=== PATIENT | male | born 1995 | race Caucasian/White ===

== ENCOUNTER 2024-06-18 15:12 | Emergency (ER) | payer OTHER ==
[~2024-06-18] VITALS: Ht 182.9 cm; Wt 93.0 kg
[2024-06-18] MEDS ORDERED: ONDANSETRON 4 MG/2 ML VIAL ONE (16:08)
[2024-06-18] MEDS ORDERED: FAMOTIDINE. 20 MG/2 ML VIAL IV ONE (16:09)
[2024-06-18] MEDS: FAMOTIDINE. 20 MG/2 ML VIAL IV ONE (16:12)
[2024-06-18] MEDS: IV NORMAL SALINE 1000 ML BAG IV ONE (16:12)
[2024-06-18] MEDS: ONDANSETRON 4 MG/2 ML VIAL IV ONE (16:12)
[2024-06-18 16:17] LABS: BASOPHILS # (AUTO) 0.1 K/UL (0.0-0.2); EOSINOPHILS # (AUTO) 0.1 K/uL (0.0-0.7); EOSINOPHILS % (AUTO) 0.9 % (0.0-7.0); HEMATOCRIT 50.3 % (36.7-47.1); HEMOGLOBIN 17.6 g/dL (12.5-16.3); LYMPHOCYTES # (AUTO) 2.2 K/uL (0.8-4.8); MEAN CORPUSCULAR HEMOGLOBIN 34.1 uug (23.8-33.4); MEAN CORPUSCULAR HGB CONC 35 g/dL (32.5-36.3); MEAN CORPUSCULAR VOLUME 97.4 fL (73.0-96.2); MONOCYTES # (AUTO) 0.6 K/uL (0.1-1.30); MONOCYTES % (AUTO) 8.1 % (0.0-11.0); NEUTROPHILS # (AUTO) 3.9 K/uL (1.8-8.9); PLATELET COUNT (AUTO) 298 K/uL (152-348); RED BLOOD CELL COUNT(AUTO) 5.17 MIL/uL (4.06-5.63); WHITE BLOOD COUNT (AUTO) 6.8 K/uL (3.6-10.2)
[2024-06-18 16:18] LABS: DIFFERENTIAL COMMENT 1
[2024-06-18 16:32] LABS: ALBUMIN 3.7 g/dL (3.4-5.0); BILIRUBIN,DIRECT 0.2 mg/dL (0.0-0.2); BILIRUBIN,TOTAL 0.6 mg/dL (0.2-1.0); CALCIUM 8.2 mg/dL (8.5-10.1); POTASSIUM 3.7 mmol/L (3.5-5.1); TOTAL PROTEIN, SERUM 7.5 g/dL (6.4-8.2)
[2024-06-18] MEDS ORDERED: ONDA4TAB11 PO (17:22)
[2024-06-18] MEDS ORDERED: FAMO-132 PO (17:22)
[2024-06-18 18:22] VITALS: BP 121/77; O2SAT 96
== END 2024-06-18 17:40 | disposition home or self-care (01) ==
LOC: ER 15:12
DX: F10.10 Alcohol abuse, uncomplicated (principal); R10.9 Unspecified abdominal pain; R11.2 Nausea with vomiting, unspecified; Y90.9 Presence of alcohol in blood, level not specified
CPT/HCPCS: 99284; 96374; 96361; 96375; 80076; 80048; 83690; 85025; 36415; J3490; J2405; J7040; A4606; A4663

== ENCOUNTER 2025-01-20 13:10 | Emergency (ER) | payer OTHER ==
[~2025-01-20] VITALS: Ht 182.9 cm; Wt 95.3 kg
[~2025-01-20 13:10] MED LIST: FAMO-132 PO; ONDA4TAB11 PO
[2025-01-20 13:14] VITALS: BP 140/89
[2025-01-20 13:53] VITALS: BP 140/89; TEMP 98; O2SAT 97
== END 2025-01-20 13:54 | disposition home or self-care (01) ==
LOC: ER 13:17
DX: S61.012A Laceration without foreign body of left thumb without damage to nail, initial encounter (principal); X58.XXXA Exposure to other specified factors, initial encounter; Y93.89 Activity, other specified; Y92.89 Other specified places as the place of occurrence of the external cause; Y99.8 Other external cause status
CPT/HCPCS: A4606; A4663